=== PATIENT | female | born 1985 | race American Indian/Alaskan Native ===

== ENCOUNTER 2017-03-14 10:05 | Emergency (ER) | payer SELFPAY ==
[2017-03-14 11:14] LABS: Basophils % (Auto) 0.3 % (0.0-1.8); Eosinophils % (Auto) 0.8 % (0.0-4.3); Hematocrit 34.1 % (30.3-42.9); Hemoglobin 10.7 gm/dl (10.1-14.3); Mean Corpuscular HGB Conc 31 % (30-34); Mean Corpuscular Volume 71 fl (79-97); Platelet Count 270 K/mm3 (140-440); Red Blood Count 4.81 M/mm3 (3.65-5.03); Red Cell Distribution Width 14.6 % (13.2-15.2); White Blood Count 4.6 K/mm3 (4.5-11.0)
[2017-03-14 11:16] LABS: Mean Corpuscular Hemoglobin 22 pg (28-32)
[2017-03-14 11:27] LABS: Bilirubin,Urine NEG (Negative); Blood,Urine SM (Negative); Ketones,Urine NEG (Negative); Leukocyte Esterase,Urine SM (Negative); Mucus,Urine 3+ /HPF; Nitrite,Urine NEG (Negative); Urobilinogen,Urine < 2.0 mg/dL (<2.0)
--- NOTE | 2017-03-14 15:36 | Emergency Department Report ---
HPI - General Chief Complaint: Urogenital-Female Time Seen by Provider: 03/14/17 15:21 - HPI HPI: Room 25 The patient is a 31-year-old female presenting with a chief complaint of pelvic cramping. The patient states for 1 week she has had intermittent lower abdominal cramping and pain in her back and bilateral thighs. The patient states 2 days ago she noticed vaginal bleeding after sexual intercourse. Patient denies vaginal discharge but does admit to dysuria for one week. Patient denies hematuria. Patient currently denies vaginal bleeding. Patient denies any history of fever. The patient states her last Pap smear occurred earlier this year at the [facility] in her hometown. 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 ANEMIA - Surgical History Additional Surgical History: C section. Mirena IUD - Family History Family history: no significant - Social History Smoking Status: Never Smoker Substance Use Type: None (denies illicit drug use), Alcohol (occasional) - Medications Home Medications: Home Medications Medication Instructions Recorded Confirmed Last Taken Type Phentermine HCl [Adipex-P] 0.5 tab PO QAM 03/14/17 03/14/17 03/13/17 09:00 History Sulfamethoxazole/Trimethoprim 1 each PO BID #14 tablet 03/14/17 Unknown Rx [Bactrim DS TAB] traMADol [Ultram] 50 mg PO Q6HR PRN #20 tablet 03/14/17 Unknown Rx ED Review of Systems ROS: Stated complaint: VAG BLEEDING/CRAMPS/SWEATS Other details as noted in HPI Comment: All other systems reviewed and negative Constitutional: denies: chills, fever Eyes: denies: eye pain, eye discharge, vision change ENT: denies: ear pain, throat pain Respiratory: denies: cough, shortness of breath, wheezing Cardiovascular: denies: chest pain, palpitations Endocrine: no symptoms reported Gastrointestinal: abdominal pain Genitourinary: dysuria, abnormal menses. denies: urgency, hematuria, discharge Musculoskeletal: back pain Skin: denies: rash, lesions Neurological: denies: headache, weakness, paresthesias Psychiatric: denies: anxiety, depression Hematological/Lymphatic: denies: easy bleeding, easy bruising Physical Exam - Physical Exam Vital Signs: Vital Signs 03/14/17 10:29 Temperature 99.4 F Pulse Rate 81 Respiratory 18 Rate Blood Pressure 123/86 O2 Sat by Pulse 100 Oximetry Physical Exam: GENERAL: The patient is well-developed well-nourished female lying on stretcher not appearing to be in acute distress. [] HEENT: Normocephalic. Atraumatic. Extraocular motions are intact. Patient has moist mucous membranes. NECK: Supple. Trachea midline CHEST/LUNGS: Clear to auscultation. There is no respiratory distress noted. HEART/CARDIOVASCULAR: Regular. There is no tachycardia. There is no gallop rub or murmur. ABDOMEN: Abdomen is soft, with diffuse discomfort to palpation. Patient has normal bowel sounds. There is no abdominal distention. SKIN: There is no rash. There is no edema. There is no diaphoresis. NEURO: The patient is awake, alert, and oriented. The patient is cooperative. The patient has normal speech MUSCULOSKELETAL: There is no evidence of acute injury. PELVIC: No cervical lesions seen. No discharge appreciated. No blood in the vault ED Course Vital Signs 03/14/17 10:29 Temperature 99.4 F Pulse Rate 81 Respiratory 18 Rate Blood Pressure 123/86 O2 Sat by Pulse 100 Oximetry ED Medical Decision Making - Lab Data Result diagrams: 03/14/17 10:43 Wet Prep- no use, less than 20% clue cells, few Trichomonas - Radiology Data Radiology results: report reviewed (pelvic ultrasound), image reviewed (pelvic ultrasound) pelvic ultrasound (read by radiologist)- 2.1 cm solid mass in the right ovary which is a nonspecific finding. Clinical follow-up and a follow-up ultrasound in 4-6 weeks is recommended. - Differential Diagnosis cervical CA, vaginitis, bacterial vaginosis, uterine fibroids, endometriosi Critical care attestation.: If time is entered above; I have spent that time in minutes in the direct care of this critically ill patient, excluding procedure time. ED Disposition Clinical Impression: Ovarian mass, right, Trichomonas vaginalis (TV) infection, Urinary tract infection Disposition: - TO HOME OR SELFCARE Is pt being admited?: No Does the pt Need Aspirin: No Condition: Stable Instructions: Menorrhagia (ED), Trichomoniasis (ED) Additional Instructions: Return to the emergency department immediately should you develop worsening symptoms, fever, inability to tolerate food or liquid or any other concerns. Prescriptions: Sulfamethoxazole/Trimethoprim [Bactrim DS TAB] 1 each PO BID #14 tablet traMADol [Ultram] 50 mg PO Q6HR PRN #20 tablet PRN Reason: Pain Referrals: ALVARADO ALFARO MD [Staff Physician] - 3-5 Days (Dr Alfaro is a primary physician. Please follow up with him to be established as a patient) [facility] [Provider Group] - 3-5 Days (Please follow up with my OB/ NETWORK ENGINEER as soon as possible for further evaluation) Time of Disposition: 18:26
[2017-03-14 15:37] VITALS: BP 126/61
--- NOTE | 2017-03-14 16:38 | Ultrasound Report ---
Transabdominal and transvaginal pelvic ultrasound. History: Pelvic pain. Findings: The uterus is normal in size and configuration. A linear echogenic structure in the endometrial cavity is consistent with an IUD. The endometrial thickness is 12 mm which is normal. No focal uterine abnormalities are seen. The left ovary is normal. There is a 2.1 cm in diameter round solid mass within the right ovary. There is a small volume of fluid within the cul-de-sac. Impression: 2.1 cm solid mass in the right ovary which is a nonspecific finding. Clinical followup and a followup ultrasound in 4-6 weeks is recommended.
[2017-03-14] MEDS ORDERED: ROCEPHIN IM ONE (18:25)
[2017-03-14] MEDS ORDERED: ZITHROMAX PO ONE (18:25)
[2017-03-14] MEDS ORDERED: FLAGYL PO ONE (18:25)
[2017-03-14] MEDS ORDERED: XYLOCAINE 1% MPF 5 mL INFILTRATI ONE (18:25)
== END 2017-03-14 19:13 | disposition home or self-care (01) ==
LOC: ED 10:05
DX: A59.01 Trichomonal vulvovaginitis (principal); N39.0 Urinary tract infection, site not specified; N83.9 Noninflammatory disorder of ovary, fallopian tube and broad ligament, unspecified
CPT/HCPCS: 36415; 76830; 76856; 81001; 84703; 85025; 87210; 87591; 96372; 99284; J0696

== ENCOUNTER 2018-10-23 17:45 | Emergency (ER) | payer SELFPAY ==
--- NOTE | 2018-10-23 18:08 | Emergency Department Report ---
Blank Doc - Documentation Documentation: vaginal bleeding that started 3 days ago only with intercourse. Not going thr ough any pads. Lmp 10/05/18. This initial assessment diagnostic orders/clinical plan/treatment (s) is/Are subject change based on patient's health status, clinical progression and re- assessment by fellow clinical providers in the ED. Further treatment and work-up at subsequent clinical providers discretion. Patient/guardians urged not to elope from their condition may be serious if not clinically assessed and managed. Initial order include:
[2018-10-23 18:46] LABS: Bacteria,Urine 1+ /HPF (Negative); Bilirubin,Urine NEG (Negative); Blood,Urine NEG (Negative); Color,Urine Yellow (Yellow); Mucus,Urine 2+ /HPF; Protein,Urine <15 mg/dL mg/dL (Negative)
[2018-10-23 19:06] LABS: HCG Qualitative,Urine Negative (Negative)
--- NOTE | 2018-10-24 00:41 | Ultrasound Report ---
PROCEDURE: US PELVIC COMPLETE TECHNIQUE: Real-time transabdominal sonography in multiple planes of pelvis was performed with image documentation. HISTORY: pelvic pain and postcoital bleeding COMPARISONS: None . FINDINGS: UTERUS Size: 12.2 x 6.7 x 8.2 cm. Endometrial thickness: There is an intrauterine device Orientation: anteverted. Cervix: Normal. Fibroids/masses: None. RIGHT Ovary: Not visualized on this study LEFT Ovary: 2.9 x 2.9 x 3.2 cm. Appearance: There is a dominant 13 mm cyst. Pelvic fluid: None. Other: None. IMPRESSION: There is an intrauterine device identified in the uterus. A 13 mm dominant follicular cyst identified on the left ovary. The right ovary is not visualized on t his study.. This document is electronically signed by Irina Alexander DO., October 24 2018 12:38:35 AM ET
[2018-10-24] MEDS ORDERED: ZITHROMAX PO STA (01:47)
[2018-10-24] MEDS ORDERED: ROCEPHIN IM STA (01:47)
[2018-10-24] MEDS ORDERED: XYLOCAINE 1% MPF 5 mL INFILTRATI ONE (01:47)
--- NOTE | 2018-10-24 02:00 | Emergency Department Report ---
ED Female HPI - General Chief complaint: Vaginal Bleeding Stated complaint: BACK PAIN/BLEEDING Time Seen by Provider: 10/23/18 22:12 Source: patient Mode of arrival: Ambulatory Limitations: No Limitations - History of Present Illness Initial comments: Obese 32-year-old -[place] female reports emerge department with her significant other stated that she should have some some issues with bleeding after sexual intercourse. The past few days. She denies any foul vaginal discharge, any increased urinary urgency decreased urinary production, increased urinary frequency, flank pain, fevers, fevers, chills, sweats, changes in the type of sexual activity. She denies any rashes or known masses. She states she has had her IUD and or 6 years and had it evaluated last year. Radiation: suprapubic Severity: mild Consistency: constant Improves with: none Worsens with: intercourse - Related Data Home Medications Medication Instructions Recorded Confirmed Last Taken Phentermine HCl [Adipex-P] 0.5 tab PO QAM 03/14/17 03/14/17 03/13/17 09:00 Previous Rx's Medication Instructions Recorded Last Taken Type Sulfamethoxazole/Trimethoprim 1 each PO BID #14 tablet 03/14/17 Unknown Rx [Bactrim DS TAB] traMADol [Ultram] 50 mg PO Q6HR PRN #20 tablet 03/14/17 Unknown Rx Doxycycline [Vibramycin CAP] 100 mg PO BID #28 capsule 10/24/18 Unknown Rx Ketorolac [Toradol] 10 mg PO Q6H PRN #15 tablet 10/24/18 Unknown Rx metroNIDAZOLE [Flagyl] 2,000 mg PO ONCE #4 tablet 10/24/18 Unknown Rx Allergies Allergy/AdvReac Type Severity Reaction Status Date / Time No Known Allergies Allergy Verified 10/23/18 18:05 ED Review of Systems ROS: Stated complaint: BACK PAIN/BLEEDING Other details as noted in HPI Constitutional: denies: chills, fever Eyes: denies: eye pain, eye discharge, vision change ENT: denies: ear pain, throat pain Respiratory: denies: cough, shortness of breath, wheezing Cardiovascular: denies: chest pain, palpitations Endocrine: no symptoms reported Gastrointestinal: denies: abdominal pain, nausea, diarrhea Genitourinary: denies: urgency, dysuria, discharge Musculoskeletal: denies: back pain, joint swelling, arthralgia Skin: denies: rash, lesions Neurological: denies: headache, weakness, paresthesias Psychiatric: denies: anxiety, depression Hematological/Lymphatic: denies: easy bleeding, easy bruising ED Past Medical Hx - Past Medical History Previous Medical History?: Yes Additional medical history: "Cyst on ovaries". ANEMIA - Surgical History Additional Surgical History: C section. Mirena IUD - Social History Smoking Status: Never Smoker Substance Use Type: None - Medications Home Medications: Home Medications Medication Instructions Recorded Confirmed Last Taken Type Phentermine HCl [Adipex-P] 0.5 tab PO QAM 03/14/17 03/14/17 03/13/17 09:00 History Sulfamethoxazole/Trimethoprim 1 each PO BID #14 tablet 03/14/17 Unknown Rx [Bactrim DS TAB] traMADol [Ultram] 50 mg PO Q6HR PRN #20 tablet 03/14/17 Unknown Rx Doxycycline [Vibramycin CAP] 100 mg PO BID #28 capsule 10/24/18 Unknown Rx Ketorolac [Toradol] 10 mg PO Q6H PRN #15 tablet 10/24/18 Unknown Rx metroNIDAZOLE [Flagyl] 2,000 mg PO ONCE #4 tablet 10/24/18 Unknown Rx ED Physical Exam - General Limitations: No Limitations General appearance: alert, in no apparent distress - Head Head exam: Present: atraumatic, normocephalic - Eye Eye exam: Present: normal appearance - ENT ENT exam: Present: mucous membranes moist - Neck Neck exam: Present: normal inspection - Respiratory Respiratory exam: Present: normal lung sounds bilaterally. Absent: respiratory distress - Cardiovascular Cardiovascular Exam: Present: regular rate, normal rhythm. Absent: systolic murmur, diastolic murmur, rubs, gallop - GI/Abdominal GI/Abdominal exam: Present: soft, normal bowel sounds - External exam: Present: normal external exam Speculum exam: Present: cervical discharge (heavy yellowish vaginal discharge) Bi-manual exam: Present: adnexal tenderness, uterine tenderness - Extremities Exam Extremities exam: Present: normal inspection - Back Exam Back exam: Present: normal inspection - Neurological Exam Neurological exam: Present: alert, oriented X3 - Psychiatric Psychiatric exam: Present: normal affect, normal mood - Skin Skin exam: Present: warm, dry, intact, normal color. Absent: rash ED Course Vital Signs 10/23/18 18:05 Temperature 99.5 F Pulse Rate 93 H Respiratory 18 Rate Blood Pressure 149/83 O2 Sat by Pulse 100 Oximetry ED Medical Decision Making - Radiology Data Radiology results: report reviewed (ultrasound could not view The right ovary, no masses were appreciated. No abscess.) Critical care attestation.: If time is entered above; I have spent that time in minutes in the direct care of this critically ill patient, excluding procedure time. ED Disposition Clinical Impression: Trichomonas vaginitis Disposition: TO HOME OR SELFCARE Is pt being admited?: No Does the pt Need Aspirin: No Condition: Stable Instructions: Trichomoniasis (ED) Prescriptions: Doxycycline [Vibramycin CAP] 100 mg PO BID #28 capsule Ketorolac [Toradol] 10 mg PO Q6H PRN #15 tablet PRN Reason: Pain metroNIDAZOLE [Flagyl] 2,000 mg PO ONCE #4 tablet Referrals: RIO RODRIGUEZ MD [Primary Care Provider] - 3-5 Days
[2018-10-24 02:20] VITALS: BP 131/85
== END 2018-10-24 02:40 | disposition home or self-care (01) ==
LOC: ED 17:45
DX: A59.01 Trichomonal vulvovaginitis (principal); D64.9 Anemia, unspecified
CPT/HCPCS: 76856; 81001; 81025; 87210; 87591; 96372; 99284; J0696